=== PATIENT | male | born 1990 | race Hispanic/Latino ===

== ENCOUNTER 2020-03-31 13:00 | Outpatient (RCR) | payer OTHER ==
[2020-03-31] MEDS ORDERED: MUPIROCIN 2% OINT 22 GM TUBE ONE (18:46)
== END 2020-04-12 ==
LOC: WCC 13:00
PROVIDERS: ATTEND Internal Medicine Infectious Disease
DX: L89.892 Pressure ulcer of other site, stage 2 (principal); Z74.01 Bed confinement status